=== PATIENT | male | born 1980 | race Hispanic/Latino ===

== ENCOUNTER 2022-09-20 07:28 | Emergency (ER) | payer OTHER, SELFPAY ==
[2022-09-20] MEDS ORDERED: Iopamidol 370 76% 100 ML VIAL ONE (09:29)
== END 2022-09-20 10:23 | disposition home or self-care (01) ==
LOC: EDBD 07:28 → BURERS 07:28
DX: S13.9XXA Sprain of joints and ligaments of unspecified parts of neck, initial encounter (principal); S09.90XA Unspecified injury of head, initial encounter; M25.572 Pain in left ankle and joints of left foot; V89.2XXA Person injured in unspecified motor-vehicle accident, traffic, initial encounter
CPT/HCPCS: 70450; 71260; 72125; 74177; 93005; G0390; Q9967